=== PATIENT | male | born 1950 | race Caucasian/White ===

== ENCOUNTER → 2017-11-01 | Outpatient (CLI) | payer OTHER ==
[~2017-11-01] MED LIST: SIMV40TA2 PO
[2017-11-01 11:28] LABS: ALBUMIN 3.6 gm/dl (3.4-5.0); AST/SGOT 19 U/L (15-37); BLOOD UREA NITROGEN 14 mg/dl (7-18); CALCIUM 8.9 mg/dl (8.5-10.1); CARBON DIOXIDE 27 mmol/L (21-32); CREATININE 1.04 mg/dl (0.60-1.40); GLUCOSE 121 mg/dl (70-99); POTASSIUM 4.2 mmol/L (3.5-5.1); SODIUM 137 mmol/L (136-145)
[2017-11-01 11:32] LABS: ALKALINE PHOSPHATASE 70 U/L (45-117); ALT/SGPT 34 U/L (12-78); CHOLESTEROL 192 mg/dl (0-200); LDL CHOLESTEROL CALCULATED 125 mg/dl; TOTAL PROTEIN 7.7 gm/dl (6.4-8.2)
== END | disposition home or self-care (01) ==
LOC: C.LABBC 08:50
PROVIDERS: ATTEND Nurse Practitioner Adult Health
DX: E78.5 Hyperlipidemia, unspecified (principal); I10 Essential (primary) hypertension

== ENCOUNTER → 2017-11-18 | Outpatient (CLI) | payer OTHER ==
[2017-11-18 11:38] LABS: HEMOGLOBIN A1C 6.2 % (4.5-5.6)
[2017-11-18 11:41] LABS: BLOOD UREA NITROGEN 18 mg/dl (7-18); CALCIUM 9.4 mg/dl (8.5-10.1); CARBON DIOXIDE 27 mmol/L (21-32); CREATININE 1.12 mg/dl (0.60-1.40); GLUCOSE 116 mg/dl (70-99); POTASSIUM 4.4 mmol/L (3.5-5.1); SODIUM 137 mmol/L (136-145)
== END | disposition home or self-care (01) ==
LOC: C.LABBC 08:26
PROVIDERS: ATTEND Nurse Practitioner Adult Health
DX: E78.5 Hyperlipidemia, unspecified (principal); I10 Essential (primary) hypertension; R73.03 Prediabetes

== ENCOUNTER → 2017-11-29 | Outpatient (CLI) | payer OTHER ==
--- NOTE | 2017-11-29 16:06 | DIAGNOSTIC IMAGING REPORT ---
R VENOUS DOPP LOWER EXT UNILAT HISTORY: 67 years-old Male M79.604 Pain of right lower extremityright lower [id number] acute pain and swelling of the right lower extremity COMPARISON: None available TECHNIQUE: Multiple real-time sonographic images of the right lower extremity deep venous structures were obtained assessing grayscale appearance, color and spectral flow. FINDINGS: There is normal flow, phasicity, compressibility and augmentation of the right lower extremity deep venous structures. IMPRESSION: No sonographic evidence of deep venous thrombosis. The above report was generated using voice recognition software. It may contain grammatical, syntax or spelling errors. Electronically signed by: Alexis Santizo M.D. 11/29/2017 4:05 PM Dictated Date/Time: 11/29/2017 4:04 PM
== END | disposition home or self-care (01) ==
LOC: C.ULTR 15:30
PROVIDERS: ATTEND Nurse Practitioner Adult Health
DX: M79.604 Pain in right leg (principal)

== ENCOUNTER 2020-03-04 13:40 | Observation (INO) ==
[2020-03-04] MEDS ORDERED: SODIUM CHLORIDE 0.9% 1000ML 1,000 ML IV SCH (14:15)
[2020-03-04] MEDS ORDERED: OPTIRAY 320 125ml IV PRN (14:19)
[2020-03-04 14:26] LABS: Basophils # (auto) 0.05 K/uL (0-0.2); Basophils % (auto) 0.4 %; Eosinophils # (auto) 0.38 K/uL (0-0.5); Eosinophils % (auto) 3.4 %; Hemoglobin 14.8 g/dL (14.0-18.0); Immature Granulocytes # (auto) 0.02 K/uL (0.00-0.02); Immature Granulocytes % (auto) 0.2 %; Lymphocytes # (auto) 2.75 K/uL (1.2-3.4); Lymphocytes % (auto) 24.6 %; Mean Corpuscular Hemoglobin 30.3 pg (25-34); Mean Corpuscular Hgb Conc 33.6 g/dL (32-36); Mean Corpuscular Volume 90.2 fL (80-100); Monocytes # (auto) 0.83 K/uL (0.11-0.59); Monocytes % (auto) 7.4 %; Neutrophils # (auto) 7.16 K/uL (1.4-6.5); Platelet Count 247 K/uL (130-400); RDW Standard Deviation 42.5 fL (36.4-46.3); Red Blood Count 4.88 M/uL (4.7-6.1); White Blood Count 11.19 K/uL (4.8-10.8)
--- NOTE | 2020-03-04 14:28 | Emergency Department Note ---
Impression & Plan Numbness on right side, Hypertension, Stroke-like symptoms ED Provider Note NAME: JOSE LUIS DOMINGUEZ AGE: 70 SEX: M : 1950 ARRIVES VIA: Walk-In INFORMANT: [Patient] ED PROVIDER(S): [Lowell Costello MD] CHIEF COMPLAINT: Right-sided numbness HISTORY OF PRESENT ILLNESS: The patient is a 70-year-old male who presents to the ED with complaints of right-sided numbness for the last hour. The patient states that yesterday, he had a dizzy spell for a few minutes that resolved. Today, about 5 hours ago, his left arm felt numb for a few minutes and then resolved. Patient states that 1 hour ago, he developed numbness to his right face, right arm and right leg and his right side felt weak. The patient states he did not think he could walk. He states that now, he has only residual numbness in his right arm, most of his symptoms have resolved. Patient denies any difficulty with his speech or facial drooping during the severe numbness episode. Patient has not had cough, cold or congestion. He has been in baseline health. He takes baby aspirin regularly. He has never had a stroke. The patient did go to his doctor's office and was referred to the ED. REVIEW OF SYSTEMS: See HPI for pertinent positives and negatives. A total of ten systems were reviewed and were otherwise negative. PMHx/PSHx: See Below SOCIAL HISTORY: See Below. PHYSICAL EXAM: GENERAL: Patient is in no acute distress. HEENT: No acute trauma, normocephalic atraumatic, mucous membranes moist, no nasal congestion, no scleral icterus. NECK: No stridor, no adenopathy, no meningismus, trachea is midline. LUNGS: Clear to auscultation bilaterally, no wheeze, no rhonchi, breath sounds equal. HEART: Without murmurs gallops or rubs, regular rate and rhythm. ABDOMEN: Soft, nontender, bowel sounds positive, no hernias, no peritonitis. EXTREMITIES: No cyanosis or edema, full range of motion of all the joints without pain or difficulty, no signs for acute trauma. NEUROLOGIC: Oriented x 3, no acute motor or sensory deficits, no focal weakness. No speech slur or facial droop, there is some subtle decrease in sensation in the right arm when compared to the left. There is no cerebellar dysfunction or pronator drift. SKIN: No rash, no jaundice, no diaphoresis. DIFFERENTIAL DIAGNOSIS: Infection, dehydration, metabolic abnormality, hypo/hyperglycemia, CVA, TIA, hypertensive emergency, electrolyte disturbance, anemia, hypoxia, cardiac sources, intracerebral event, toxicologic, neurologic, as well as other pathologies. EMERGENCY DEPARTMENT COURSE/PROCEDURES: ECG: Indication was weakness and possible stroke. The EKG shows a normal sinus rhythm with a rate of 82. There is no ST elevation, no PVCs. The QTc is 457. Continuous Cardiac Monitoring: An order was placed for continuous cardiac monitoring. The monitor shows a rate of 78 with normal sinus rhythm. Critical Care Note: I have personally spent greater than 33 minutes of critical care time in the direct management of this patient. This includes bedside care, interpretation of diagnostic studies, and testing, discussion with consultants, patient, and family members, and other required patient management activities. This 33 minutes is in excess of all separately billable procedures. MEDICAL DECISION MAKING: There is a mild leukocytosis, this could be consistent with infection or the stress of his situation. There is no anemia. No coagulopathy. No significant electrolyte abnormality or kidney failure. No liver enzyme elevation. Urinalysis does not show infection. EKG shows a sinus rhythm, no dysrhythmia, no acute ischemia. Cardiac enzyme testing x1 is not consistent with acute cardiac injury. Brain CT angiogram does not show any bleed or mass-effect. CT Angio of the neck does show some stenosis, no acute clot. On my exam, the patient may have had some slight decrease in his sensation on the right arm. There were no focal motor deficits. No speech slur. Given the patient's presentation, a stroke alert was called. The patient was seen by the tele-stroke neurologist. The patient received IV saline for hydration. He was given a dose of oral Plavix as recommended by the stroke neurologist. The patient was initially quite hypertensive and I did order for some IV hydralazine however, this medication was not required as his pressure decreased spontaneously. The patient presents with symptoms concerning for TIA/stroke. He has improved significantly on his own and at this point, because of the marked improvement, as per the stroke neurologist, is not a candidate for TPA. I spoke to the patient about his findings, I spoke with the case hardener. Hospitalization and further work-up is warranted. The on-call hospitalist was consulted. Patient is currently resting comfortably. Past Med/Surg History Medical History Sensorineural hearing loss (Inactive) Tinnitus (Inactive) Surgical History History of appendectomy History of surgery on wrist fracture repair History of vasectomy Family History Mother Cancer Breast cancer Denies family history of Ovarian cancer Prostate cancer Diabetes Myocardial infarction Hypertension Stroke Social History Preferred Language: Bengali Communication Ability: Effective Visual Impairment: No Limitations Hearing Ability: Normal Historical Interpreter Required: No Beliefs That Will Affect Care: None marital status: single Current Living Situation: Other Current Living Situation Comment: girlfriend current occupational status: employed Other Information That Helps Us Care for You: No Feels Safe at Home: Yes Safety Concerns: Feels Safe At This Time Smoking Status: Never smoker Hx Alcohol Use: Yes Alcohol type: beer Alcohol Intake Frequency: Rarely Hx Substance Use: No Childhood Exposure to Second-Hand Smoke: No caffeine: Yes Dental Care, Regularly: Yes Physical Activity Frequency: Does not Exercise Seatbelt Use: always Sunscreen Use: No Allergies Allergies Allergy/AdvReac Type Severity Reaction Status Date / Time codeine Allergy Mild Verified 03/04/20 15:24 Home Meds Home Medications Medication Instructions Recorded Confirmed aspirin 81 mg chewable tablet 81 mg PO QAM tab 11/14/19 03/04/20 cholecalciferol (vitamin D3) 50 2,000 units PO QAM cap 11/14/19 03/04/20 mcg (2,000 unit) capsule mometasone 50 mcg/actuation nasal 1 sprays INTNAS QAM PRN gm 11/14/19 03/04/20 spray omega-3 fatty acids 1,000 mg 1,000 mg PO QAM 11/14/19 03/04/20 capsule lisinopril 20 mg PO QAM 03/04/20 03/04/20 simvastatin 40 mg PO QAM 03/04/20 03/04/20 Previous Rx's Medication Instructions Recorded sildenafil (pulm.hypertension) 20 20 mg PO ONCE PRN #120 tab 05/19/20 mg tablet Results & Data (ED) Vital Signs Vital Signs - 24 hr 03/04/20 13:46 03/04/20 14:32 03/04/20 14:34 Temperature 36.9 C Temperature Source Oral Pulse Rate 88 88 82 Pulse Rate [Apical] Pulse Rate from SpO2 Sensor 80 Pulse Rhythm Regular Pulse Strength Normal Respiratory Rate 18 20 19 Respiratory Effort / Characteristics Non-Labored Spontaneous Respiratory Depth Normal Respiratory Pattern Regular Blood Pressure 188/75 H 179/85 H 194/95 H Blood Pressure [Right Arm] Blood Pressure Mean 112 104 133 Blood Pressure Mean [Right Arm] Blood Pressure Position Sitting Pulse Oximetry 95 95 Oxygen Delivery Method Room Air Sepsis Recent Fever Within 48 Hours No Sepsis New/Unexplained Change in Mental Status No Sepsis Action Taken by Nursing No Action Required 03/04/20 14:36 03/04/20 15:00 03/04/20 15:26 Temperature Temperature Source Pulse Rate 82 Pulse Rate [Apical] 74 76 Pulse Rate from SpO2 Sensor 81 Pulse Rhythm Pulse Strength Respiratory Rate 19 18 18 Respiratory Effort / Characteristics Respiratory Depth Respiratory Pattern Blood Pressure Blood Pressure [Right Arm] 145/68 H 159/82 H Blood Pressure Mean Blood Pressure Mean [Right Arm] 93 107 Blood Pressure Position Pulse Oximetry 95 95 97 Oxygen Delivery Method Room Air Room Air Sepsis Recent Fever Within 48 Hours Sepsis New/Unexplained Change in Mental Status Sepsis Action Taken by Halfway Medications Current Medication List: was personally reviewed by me Laboratory Data Attestation: I reviewed the patient's lab results. Result diagrams: 03/04/20 14:16 03/04/20 14:16 Lab Results 03/04/20 03/04/20 03/04/20 Range/Units 14:13 14:16 14:16 WBC 11.19 H (4.8-10.8) K/uL RBC 4.88 (4.7-6.1) M/uL Hgb 14.8 (14.0-18.0) g/dL Hct 44.0 (42-52) % MCV 90.2 (80-100) fL MCH 30.3 (25-34) pg MCHC 33.6 (32-36) g/dL RDW Std Deviation 42.5 (36.4-46.3) fL RDW Coeff of Nikolai 13.0 (11.5-14.5) % Plt Count 247 (130-400) K/uL MPV 10.0 (7.4-10.4) fL Immature Gran % (Auto) 0.2 % Neut % (Auto) 64.0 % Lymph % (Auto) 24.6 % [place] % (Auto) 7.4 % Eos % (Auto) 3.4 % Baso % (Auto) 0.4 % Immature Gran # (Auto) 0.02 (0.00-0.02) K/uL Neut # (Auto) 7.16 H (1.4-6.5) K/uL Lymph # (Auto) 2.75 (1.2-3.4) K/uL [place] # (Auto) 0.83 H (0.11-0.59) K/uL Eos # (Auto) 0.38 (0-0.5) K/uL Baso # (Auto) 0.05 (0-0.2) K/uL PT 10.7 (9.0-12.0) Seconds INR 1.0 (0.9-1.1) APTT 25.9 (21.0-31.0) Seconds PTT Ratio 0.9 Sodium (136-145) mmol/L Potassium (3.5-5.1) mmol/L Chloride (98-107) mmol/L Carbon Dioxide (21-32) mmol/L Anion Gap (3-11) BUN (7-18) mg/dl Creatinine (0.6-1.4) mg/dl Est Cr Clr Drug Dosing ml/min Est GFR ( Amer) Est GFR (Non-Af Amer) BUN/Creatinine Ratio (10-20) Glucose (70-99) mg/dl POC Glucose 118 H (70-99) mg/dl Calcium (8.5-10.1) mg/dl Magnesium (1.8-2.4) mg/dl Total Bilirubin (0.2-1) mg/dl AST (15-37) U/L ALT (12-78) U/L Alkaline Phosphatase (45-117) U/L Troponin I (0-0.045) ng/ml Total Protein (6.4-8.2) gm/dl Albumin (3.4-5.0) gm/dl Globulin (2.5-4.0) gm/dl Albumin/Globulin Ratio (0.9-2) 06/15/20 Range/Units 14:16 WBC (4.8-10.8) K/uL RBC (4.7-6.1) M/uL Hgb (14.0-18.0) g/dL Hct (42-52) % MCV (80-100) fL MCH (25-34) pg MCHC (32-36) g/dL RDW Std Deviation (36.4-46.3) fL RDW Coeff of Nikolai (11.5-14.5) % Plt Count (130-400) K/uL MPV (7.4-10.4) fL Immature Gran % (Auto) % Neut % (Auto) % Lymph % (Auto) % [place] % (Auto) % Eos % (Auto) % Baso % (Auto) % Immature Gran # (Auto) (0.00-0.02) K/uL Neut # (Auto) (1.4-6.5) K/uL Lymph # (Auto) (1.2-3.4) K/uL [place] # (Auto) (0.11-0.59) K/uL Eos # (Auto) (0-0.5) K/uL Baso # (Auto) (0-0.2) K/uL PT (9.0-12.0) Seconds INR (0.9-1.1) APTT (21.0-31.0) Seconds PTT Ratio Sodium 140 (136-145) mmol/L Potassium 3.8 (3.5-5.1) mmol/L Chloride 105 (98-107) mmol/L Carbon Dioxide 26 (21-32) mmol/L Anion Gap 9.0 (3-11) BUN 24 H (7-18) mg/dl Creatinine 1.16 (0.6-1.4) mg/dl Est Cr Clr Drug Dosing 84.3 ml/min Est GFR ( Amer) 74.6 Est GFR (Non-Af Amer) 64.3 BUN/Creatinine Ratio 20.3 H (10-20) Glucose 121 H (70-99) mg/dl POC Glucose (70-99) mg/dl Calcium 9.2 (8.5-10.1) mg/dl Magnesium 1.9 (1.8-2.4) mg/dl Total Bilirubin 0.5 (0.2-1) mg/dl AST 30 (15-37) U/L ALT 57 (12-78) U/L Alkaline Phosphatase 72 (45-117) U/L Troponin I < 0.015 (0-0.045) ng/ml Total Protein 7.8 (6.4-8.2) gm/dl Albumin 3.6 (3.4-5.0) gm/dl Globulin 4.2 H (2.5-4.0) gm/dl Albumin/Globulin Ratio 0.9 (0.9-2) Administered Medications Discontinued Medications Clopidogrel Bisulfate (Plavix) 300 mg PO NOW STA Stop: 03/04/20 15:00 Last Admin: 03/04/20 15:34 Dose: 300 mg Documented by: [id number] Hydralazine HCl (Hydralazine Hcl) 5 mg IV NOW ONE Stop: 03/04/20 14:54 Last Admin: 03/04/20 16:41 Dose: Not Given Documented by: [id number] Sodium Chloride (Nss 1000ml) 1,000 mls @ 50 mls/hr IV .Q20H NICKIE Stop: 04/03/20 14:14 Last Admin: 03/04/20 15:15 Dose: 50 mls/hr Documented by: [id number] Ioversol (Optiray 320 125ml) 115 ml IV ONCE PRN PRN Reason: Interaction Checking Stop: 03/08/20 14:18 Last Admin: 03/04/20 14:20 Dose: 115 ml Documented by: [id number] Imaging Data Radiologist's Impression: CT OF THE HEAD WITHOUT CONTRAST CLINICAL HISTORY: Stroke evaluation. Right-sided numbness. COMPARISON STUDY: MRI of the brain July 05, 2014. CT DOSE: 1239.69 mGy.cm TECHNIQUE: Helical axial images of the head were obtained without IV contrast. Automated exposure control was utilized for the study. A dose lowering technique was utilized adhering to the principles of ALARA. FINDINGS: No acute intracranial hemorrhage, midline shift or mass effect is present. The ventricular system is unremarkable. The basilar cisterns are patent. No extra-axial collections are present. There are no findings to suggest acute dural sinus thrombosis or acute territorial infarct. No significant calvarial abnormalities are present. Note is made of air-fluid levels within the sphenoid sinuses. There is also extensive opacification of the right frontal and ethmoid sinuses. Polypoid mucosal thickening within visualized portions of the maxillary sinuses noted. This may reflect sinonasal polyposis. IMPRESSION: 1. No acute intracranial findings. 2. Paranasal sinus opacification, as described above. CT angio head w con CLINICAL HISTORY: Stroke evaluation RIGHT-SIDED NUMBNESS TECHNIQUE: CT angiography of the head was performed in a dynamic helical fashion during intravenous administration of 115 cc of Optiray 320. MIP imaging was performed. A dose lowering technique was utilized adhering to the principles of ALARA. CT DOSE: COMPARISON STUDY: MR angiography performed September 2013 FINDINGS: There are no lesion suspicious for aneurysm. There are atheromatous calcifications within the carotid siphon. There are no major intracranial branch occlusions. There is no evidence of major intracranial stenosis. There is pa nsinus disease. The dural venous sinuses appear patent. IMPRESSION: 1. No evidence of aneurysm, major intracranial branch occlusion, or major intracranial stenosis 2. Pansinus disease CT angio neck with con CLINICAL HISTORY: Stroke evaluation RIGHT-SIDED NUMBNESS COMPARISON STUDY: No previous studies for comparison. TECHNIQUE: CT angiography was performed from the aortic arch to the skull base. MIP imaging was performed. The patient was scanned in a dynamic helical fashion during intravenous administration of 115 cc of Optiray 320. A dose lowering technique was utilized adhering to the principles of ALARA. CT DOSE: Technique: CT angiogram of the carotid and vertebral arteries was obtained using intravenous contrast and 3-D reconstruction. NASCET criteria was utilized. Findings: There is moderate atheromatous thickening of the distal right common carotid artery. There is calcific plaque at the level the right carotid bulb and pr oximal right internal carotid artery. There is a 50% stenosis of the proximal right internal carotid artery. There is mild atheromatous thickening of distal left common carotid artery. There is no evidence of hemodynamically significant left internal carotid artery stenosis There are mild atheromatous calcifications within the distal right vertebral artery. There is no evidence of vertebral artery occlusion dissection or hemodynamically significant stenosis. IMPRESSION: 50% stenosis of the proximal right internal carotid artery. Blood Pressure Blood Pressure Findings: Elevated blood pressure Blood Pressure Disposition: further management by hospitalist Discharge Plan Visit Data *Final* Discharge Date/Time: 03/04/20 18:00 Chief Complaint: Neuro Symptoms/Deficit Stated Complaint: LIGHTHEADED YESTERDAY, RT SIDE NUMB THIS MORNING ED Provider: Lowell Costello Discharge Problem: Numbness on right side, Hypertension, Stroke-like symptoms Patient Disposition: Admitted As Inpatient Condition: Good Discharge Instructions Interventions: ED Discharge Assessment Last Done: 03/04/20 18:00 Discharge Problem: Hypertension Qualifiers: Hypertension type: unspecified Qualified Code(s): I10 - Essential (primary) hypertension
--- NOTE | 2020-03-04 14:34 | CT Scan Report ---
CT OF THE HEAD WITHOUT CONTRAST CLINICAL HISTORY: Stroke evaluation. Right-sided numbness. COMPARISON STUDY: MRI of the brain July 05, 2014. CT DOSE: 1239.69 mGy.cm TECHNIQUE: Helical axial images of the head were obtained without IV contrast. Automated exposure con trol was utilized for the study. A dose lowering technique was utilized adhering to the principles o f ALARA. FINDINGS: No acute intracranial hemorrhage, midline shift or mass effect is present. The ventricular system is unremarkable. The basilar cisterns are patent. No extra-axial collections are present. Ther e are no findings to suggest acute dural sinus thrombosis or acute territorial infarct. No significan t calvarial abnormalities are present. Note is made of air-fluid levels within the sphenoid sinuses. There is also extensive opacification of the right frontal and ethmoid sinuses. Polypoid mucosal thic kening within visualized portions of the maxillary sinuses noted. This may reflect sinonasal polyposi s. IMPRESSION: 1. No acute intracranial findings. 2. Paranasal sinus opacification, as described above. ACT 112: Negative or not required by law. Electronically signed by: John Mehta M.D. 03/04/2020 2:33 PM
[2020-03-04 14:37] LABS: Partial Thromboplastin Ratio 0.9; Partial Thromboplastin Time 25.9 Seconds (21.0-31.0); Prothrombin Time 10.7 Seconds (9.0-12.0)
--- NOTE | 2020-03-04 14:38 | CT Scan Report ---
CT angio head w con CLINICAL HISTORY: Stroke evaluation RIGHT-SIDED NUMBNESS TECHNIQUE: CT angiography of the head was performed in a dynamic helical fashion during intravenous a dministration of 115 cc of Optiray 320. MIP imaging was performed. A dose lowering technique was util ized adhering to the principles of ALARA. CT DOSE: COMPARISON STUDY: MR angiography performed September 2013 FINDINGS: There are no lesion suspicious for aneurysm. There are atheromatous calcifications within t he carotid siphon. There are no major intracranial branch occlusions. There is no evidence of major i ntracranial stenosis. There is pansinus disease. The dural venous sinuses appear patent. IMPRESSION: 1. No evidence of aneurysm, major intracranial branch occlusion, or major intracranial stenosis 2. Pansinus disease ACT 112: Negative or not required by law. Electronically signed by: Ernst Jean M.D. 03/04/2020 2:37 PM
[2020-03-04 14:42] LABS: Alanine Aminotransferase 57 U/L (12-78); Albumin Level 3.6 gm/dl (3.4-5.0); Aspartate Aminotransferase 30 U/L (15-37); BUN Creatinine Ratio 20.3 (10-20); Blood Urea Nitrogen 24 mg/dl (7-18); Calcium 9.2 mg/dl (8.5-10.1); Carbon Dioxide 26 mmol/L (21-32); Chloride 105 mmol/L (98-107); Creatinine Clr Calc Pharmacy 84.3 ml/min; Est GFR (African American) 74.6; Est GFR (Non-African American) 64.3; Glucose 121 mg/dl (70-99); Magnesium 1.9 mg/dl (1.8-2.4); Potassium 3.8 mmol/L (3.5-5.1); Sodium 140 mmol/L (136-145)
--- NOTE | 2020-03-04 14:44 | CT Scan Report ---
CT angio neck with con CLINICAL HISTORY: Stroke evaluation RIGHT-SIDED NUMBNESS COMPARISON STUDY: No previous studies for comparison. TECHNIQUE: CT angiography was performed from the aortic arch to the skull base. MIP imaging was perfo rmed. The patient was scanned in a dynamic helical fashion during intravenous administration of 115 c c of Optiray 320. A dose lowering technique was utilized adhering to the principles of ALARA. CT DOSE: Technique: CT angiogram of the carotid and vertebral arteries was obtained using intravenous contrast and 3-D reconstruction. NASCET criteria was utilized. Findings: There is moderate atheromatous thickening of the distal right common carotid artery. There is calcifi c plaque at the level the right carotid bulb and proximal right internal carotid artery. There is a 5 0% stenosis of the proximal right internal carotid artery. There is mild atheromatous thickening of distal left common carotid artery. There is no evidence of h emodynamically significant left internal carotid artery stenosis There are mild atheromatous calcifications within the distal right vertebral artery. There is no evid ence of vertebral artery occlusion dissection or hemodynamically significant stenosis. IMPRESSION: 50% stenosis of the proximal right internal carotid artery. ACT 112: Negative or not required by law. Electronically signed by: Ernst Jean M.D. 03/04/2020 2:43 PM
[2020-03-04 14:47] LABS: Albumin Globulin Ratio 0.9 (0.9-2); Alkaline Phosphatase 72 U/L (45-117); Bilirubin,Total 0.5 mg/dl (0.2-1); Globulin 4.2 gm/dl (2.5-4.0); Total Protein 7.8 gm/dl (6.4-8.2); Troponin I < 0.015 ng/ml (0-0.045)
[2020-03-04] MEDS ORDERED: HydrALAZINE HCL 20 MG/ML VIAL IV ONE (14:53)
[2020-03-04] MEDS ORDERED: CLOPIDOGREL BISULFATE 300 MG TAB PO STA (14:59)
--- NOTE | 2020-03-04 15:31 | Electrocardiogram Report ---
Test Reason : Blood Pressure : / mmHG Vent. Rate : 082 BPM Atrial Rate : 082 BPM P-R Int : 142 ms QRS Dur : 084 ms QT Int : 392 ms P-R-T Axes : 042 040 070 degrees QTc Int : 457 ms Poor data quality, interpretation may be adversely affected Normal sinus rhythm Normal ECG When compared with ECG of 01-OCT-2008 12:15, Vent. rate has increased BY 30 BPM Nonspecific T wave abnormality now evident in Lateral leads QT has lengthened Confirmed by Cem Felipe ([id number]) on 03/04/2020 3:31:23 PM Referred By: REFERRED SELF Confirmed By:Indra Felipe
--- NOTE | 2020-03-04 15:43 | History & Physical Report ---
Date of Service March 04, 2020 Assessment & Plan (1) TIA (transient ischemic attack): This time patient's had reversal of his neurological symptoms with exception of his visual field cuts most concerning for stroke. Although imaging did not show any stroke seen on CT scan he elevated pending MRI scan. Because of his bilateral visual field cut concerns would be for a subtotal stroke. I will subsequently have the MRI continue his aspirin and Zocor at this time controlling his blood pressure and having a pending echocardiogram. If the MRI does show an event or symptoms persist neurology consultation will be undertaken on 03/05/2020 On 03/05 patient will have a Lyme, hemoglobin A1c, and lipid panel CT head 03/04/2020 no acute intracranial findings para sinus opacification CT angiogram head and neck 03/04/2020 No evidence of aneurysm major intracranial branch occlusion or major intracranial stenosis. 50% stenosis of the proximal right internal carotid artery is the only abnormality seen on CTA of the neck (2) Hypertension: Patient traditionally takes lisinopril 20 this will be maintained with offering of clonidine if need be (3) BPH (benign prostatic hyperplasia): Patient is frequent urination does not usually take medications for this did not want to start any medications at this time states he follows with his doctor for this problem (4) DVT prophylaxis: Lovenox will be used for DVT prevention History of Present Illness Primary Care Provider: Alton Hu, DO 70-year-old male who presents to the ED with complaints of right-sided numbness for the last hour. Patient states that he felt unusual this morning before work and then he developed some facial numbness and then had complete right-sided numbness. His most concerning issue now that all the numbness is resolved as he is got a right sided upper visual field cut in both eyes. The patient states that yesterday, he had a dizzy spell for a few minutes that resolved. This is also associated with some left arm discomfort but no chest pain pressure shortness of breath or feelings of palpitations. Today, 03/04/2020 approximately 5 hours prior to presenting, his symptoms began on his way to work. They got worse and he called his primary care office which referred to the hospital. He drove himself home. He did not look in the mirror to see if he had any facial drooping. When he got to the emergency department his side was so numb that he felt he could not walk into the emergency department. He subsequently was brought in in a wheelchair he had full resolution of his numbness at this point he is only presenting symptom currently is his visual field cut patient denies any difficulty with his speech or facial drooping during the severe numbness episode. Patient has not had cough, cold or congestion. He has been in baseline health. He has not had any recent tick bites change in his medical regiment. Over the weekend he was at a wedding did have increased alcohol intake over his baseline which only was few drinks at a wedding. He did use his Viagra over last 24 hours. He takes baby aspirin regularly. He has never had a stroke. Allergies Allergy/AdvReac Type Severity Reaction Status Date / Time codeine Allergy Mild Verified 03/04/20 15:24 Home Medications Home Medications Medication Instructions Recorded Confirmed Type aspirin 81 mg chewable tablet 81 mg PO QAM tab 11/14/19 03/04/20 History cholecalciferol (vitamin D3) 50 2,000 units PO QAM cap 11/14/19 03/04/20 History mcg (2,000 unit) capsule mometasone 50 mcg/actuation nasal 1 sprays INTNAS QAM PRN gm 11/14/19 03/04/20 History spray omega-3 fatty acids 1,000 mg 1,000 mg PO QAM 11/14/19 03/04/20 History capsule sildenafil (pulm.hypertension) 20 20 mg PO ONCE PRN #120 tab 02/06/20 03/04/20 Rx mg tablet lisinopril 20 mg PO QAM 03/04/20 03/04/20 History simvastatin 40 mg PO QAM 03/04/20 03/04/20 History Past Med/Surg History Social History Preferred Language: Thai Communication Ability: Effective Visual Impairment: No Limitations Hearing Ability: Normal 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 Beliefs That Will Affect Care: None marital status: single Current Living Situation: Other Current Living Situation Comment: girlfriend current occupational status: employed Other Information That Helps Us Care for You: No Feels Safe at Home: Yes Safety Concerns: Feels Safe At This Time Smoking Status: Never smoker Hx Alcohol Use: Yes Alcohol type: beer Alcohol Intake Frequency: Rarely Hx Substance Use: No Childhood Exposure to Second-Hand Smoke: No caffeine: Yes Dental Care, Regularly: Yes Physical Activity Frequency: Does not Exercise Seatbelt Use: always Sunscreen Use: No Review of Systems Review of Systems: Patient said no headache he does have changes in his visual field the right upper outer quadrant no speech or swallowing issues no chest pain, pressure or palpitations no shortness of breath, cough or wheezes no abdominal pain, nausea or vomiting, diarrhea or constipation no dysuria, hematuria or frequency no focal joint pain or swelling no back pain, CVA tenderness or radicular pain no bruising, bleeding or rashes no focal signs of weakness or numbness or altered sensation as they have completely resolved at this time with exception of his vision no complaints or anxiety or depression. Physical Exam Physical Exam: The patient appeared well nourished and normally developed. Vital signs as documented. Head exam is normocephalic atraumatic no scleral icterus Neck is without JVD, thyromegaly, or carotid bruits. Lungs are clear to auscultation, no focal loss of breath sounds Cardiac exam, Rhythm is regular.. No murmurs, rubs or gallops. Abdominal exam reveals normal bowel sounds, soft non tender, no masses Extremities are nonedematous and both pedal pulses are normal. Neurologic exam is alert and oriented, no focal loss of strength or sensation Skin is without bruises or rashes Psychologically is without concerns for anxiety or depression Results & Data Results & Data ([facility]) Vital Signs (Past 12 Hours) Vital Signs Temp Pulse Pulse Resp BP BP Pulse Ox 03/04/20 15:00 74 18 145/68 H 95 03/04/20 14:36 82 19 95 03/04/20 14:34 82 19 194/95 H 95 03/04/20 14:32 88 20 179/85 H 03/04/20 13:46 98.4 F 88 18 188/75 H 95 PG Care Time/CCT Total # of Minutes Spent Total Time Spent with Patient: Total time spent is greater than 50% in coordination of care (as documented) at patient's floor/unit and/or counseling patient: Coding Level of Care Code 64797 OBS Care - Level 3 Diagnoses TIA (transient ischemic attack) G45.9 Hypertension I10 BPH (benign prostatic hyperplasia) N40.0 DVT prophylaxis Z29.9
[2020-03-04 16:49] LABS: Appearance Urine Clear (Clear); Bilirubin Urine Negative (Negative); Blood Urine Negative (Negative); Color Urine Yellow; Glucose Urine UA Negative (Negative); Ketones Urine Negative (Negative); Leukocyte Esterase Urine Negative (Negative); Nitrite Urine Negative (Negative); Protein Urine Negative (Negative); Specific Gravity Urine > 1.045 (1.000-1.030); Urobilinogen Urine Negative (Negative); pH Urine 5.5 (4.5-7.5)
[2020-03-04] MEDS ORDERED: PHARMACIST DISCHARGE MED REC CONSULT PRN (18:38)
[2020-03-04] MEDS ORDERED: cloNIDine HCL 0.1 MG TAB PO PRN (18:38)
[2020-03-04] MEDS ORDERED: ALUMINUM/MAGNESIUM SUSP 30 ML UDC PO PRN (18:38)
[2020-03-04] MEDS ORDERED: ACETAMINOPHEN 325 MG TAB PO PRN (18:38)
[2020-03-04] MEDS ORDERED: LORazepam 0.5 MG TAB PO PRN (18:38)
[2020-03-04] MEDS ORDERED: ONDANSETRON INJ 2 MG/ML 2 ML VIAL IV PRN (18:38)
[2020-03-04] MEDS ORDERED: ENOXAPARIN INJ 40 MG/0.4 ML SYR SQ SCH (20:00)
--- NOTE | 2020-03-04 22:26 | Communication Note ---
Date of Service: March 04, 2020 Got notification by [facility] that MRI showed a small acute stroke in the L occipital lobe. Outside tPA window currently. Noted that pt is on stroke protocol with neuro checks, PT/OT and speech therapy ordered. Echo also ordered. Received 300mg of Plavix in the ED and has aspirin scheduled for the AM. Given one dose of aspirin 324mg tonight. Consult placed to neurology for AM. Resident Activity Tracking Resident Involvement: Psychological Aide Coverage Note Care Provided: Adult Hospital Medicine
[2020-03-04] MEDS ORDERED: ASPIRIN 81 MG CHEW PO ONE (22:49)
[2020-03-05 05:57] LABS: Estimated Average Glucose 169 mg/dl; Hemoglobin A1C 7.5 % (4.5-5.6)
--- NOTE | 2020-03-05 07:31 | Magnetic Resonance Report ---
MR brain wo con HISTORY: 70 years-old Male evaluate for stroke acute strokelike symptoms with right-sided numbness COMPARISON: Head CT and CTA head neck of same day, brain MRI 10/12/2013 TECHNIQUE: Multiplanar multisequence MRI of the brain was obtained without the use of IV contrast. FINDINGS: Motor Tester localizer images demonstrate no gross extracranial abnormality. There is a 2.3 x 1.9 cm focus o f restricted diffusion involving the inferior left occipital lobe, image 7 of series 4 with decreased signal on ADC map compatible with area of acute infarction. This demonstrates moderate focal cytotox ic edema. Midline structures including the corpus callosum, brainstem, optic chiasm, and pituitary gl and appear unremarkable the sagittal T1 series. 8 mm pineal gland cyst. No cerebellar tonsillar herni ation. Degenerative changes are noted involving the imaged cervical spine. There is no acute intracranial hemorrhage, midline shift, abnormal extra axial collection, hydrocepha mayo or intracranial mass. Mild scattered T2/FLAIR hyperintensities throughout the white matter of the bilateral cerebral hemispheres, most pronounced in the frontal lobes is suggestive of probable chron ic microvascular ischemic disease. There is a 1.2 cm focal T2/FLAIR hyperintense focus involving the periventricular white matter of the left frontal lobe on image 12 series 7 and image 17 series 5 sugg estive of a probable remote lacunar infarct. Major vascular flow voids appear patent. Mastoid air mason ls are clear. Moderate to extensive mucosal thickening of the paranasal sinuses, most pronounced in t he ethmoid air cells and right frontal lobe are noted with scattered areas of air-fluid levels compat ible with acute sinusitis. Orbits are unremarkable. The skull and soft tissues are within normal limi ts. IMPRESSION: 1. Acute infarct of the left occipital lobe, 2.3 x 1.9 cm. 2. Mild scattered T2/FLAIR hyperintensities throughout the white matter are suggestive of probable ch ronic microvascular ischemic disease. Additionally, there is a suggested remote lacunar infarct of th e periventricular left frontal lobe. 3. Paranasal sinus disease as above with findings suggestive of acute sinusitis. ACT 112: Negative or not required by law. The above report was generated using voice recognition software. It may contain grammatical, syntax o r spelling errors. Electronically signed by: Alexis Santizo M.D. 03/05/2020 7:29 AM
[2020-03-05 08:07] LABS: Basophils # (auto) 0.02 K/uL (0-0.2); Basophils % (auto) 0.2 %; Eosinophils # (auto) 0.36 K/uL (0-0.5); Hematocrit (blood only) 43.9 % (42-52); Hemoglobin 14.8 g/dL (14.0-18.0); Immature Granulocytes # (auto) 0.02 K/uL (0.00-0.02); Immature Granulocytes % (auto) 0.2 %; Lymphocytes # (auto) 2.57 K/uL (1.2-3.4); Lymphocytes % (auto) 28.8 %; Mean Corpuscular Hemoglobin 30.1 pg (25-34); Mean Corpuscular Hgb Conc 33.7 g/dL (32-36); Mean Corpuscular Volume 89.4 fL (80-100); Mean Platelet Volume 10.2 fL (7.4-10.4); Monocytes # (auto) 0.81 K/uL (0.11-0.59); Monocytes % (auto) 9.1 %; Neutrophils # (auto) 5.15 K/uL (1.4-6.5); Neutrophils % (auto) 57.7 %; Platelet Count 251 K/uL (130-400); RDW Coefficient of Variation 12.8 % (11.5-14.5); RDW Standard Deviation 41.8 fL (36.4-46.3); Red Blood Count 4.91 M/uL (4.7-6.1); White Blood Count 8.93 K/uL (4.8-10.8)
[2020-03-05 08:48] LABS: BUN Creatinine Ratio 16.7 (10-20); Calcium 9.2 mg/dl (8.5-10.1); Creatinine Clr Calc Pharmacy 85.1 ml/min; Est GFR (African American) 76.2; Est GFR (Non-African American) 65.7
[2020-03-05] MEDS ORDERED: SIMVASTATIN 40 MG TAB PO SCH (09:00)
[2020-03-05] MEDS ORDERED: ASPIRIN 325 MG ECTAB PO SCH (09:00)
[2020-03-05] MEDS ORDERED: lisinopriL 20 MG TAB PO SCH (09:00)
[2020-03-05] MEDS ORDERED: ASPIRIN 81 MG ECTAB PO SCH (09:00)
[2020-03-05 09:02] LABS: Lyme Ab IgG w/WB Rflx Negative (Negative)
[2020-03-05 09:03] LABS: Lyme Ab IgM w/WB Rflx Negative (Negative)
--- NOTE | 2020-03-05 09:06 | Neurology Consultation ---
Date of Consultation March 05, 2020 Assessment & Plan (1) Acute CVA (cerebrovascular accident): (2) Right homonymous hemianopsia due to recent cerebral infarction: (3) Numbness on right side: (4) Hypertension: (5) Dyslipidemia: Patient has an acute, small left occipital CVA , likely thrombotic/small vessel ischemic disease. He has some spotty decrease areas of vision to the right suggesting a partial right homonymous hemianopsia. He did have some weakness and numbness in the right arm and leg yesterday but this resolved. He has no other neurologic deficits on examination. The MRI of the brain does show the small, acute left occipital stroke, moderate generalized atrophy and mild old small vessel ischemic change. In addition there is a deep left frontal periventricular (intrathecal) circumscribed lesion which could be old ischemic but other etiologies need to be considered. Patient has risk factors for stroke including hypertension and diabetes. He was on aspirin but stopped this 2 months or so ago. Recommendations: 1. Control blood pressure as you are doing a meeting for a mean arterial pressure of 95-100. 2. Patient is a high dose statin candidate 3. Clopidogrel 75 milligrams daily to prevent further small vessel ischemic disease. This could be given instead of aspirin. 4. Consider MRI of the brain with without contrast in 2-3 months for follow-up of the left frontal circumscribed lesion. 5. Patient should visit an gas welding equipment mechanic after discharge particularly to map out visual red. 6. Increase activity as able and the patient would benefit from an exercise program. 7. Echocardiogram is pending. 8. No driving until cleared by Ophthalmology. Overall I spent a total of 100 minutes with this case, including review of records, review of MRI films, direct evaluation the patient bedside, and discussion of the case with the patient at bedside, RN at bedside, films with Dr. Santizo, and the entire case with Dr. Nolen, including differential diagnosis and treatment options. History of Present Illness Reason for Consultation: The patient is a 70-year-old, who I was asked to see at the request of Dr. Nolen, for neurologic consultation regarding right-sided symptoms and visual loss. Requesting Physician: Dr. Nolen. Attending Physician: Carlos Nolen MD History of Present Illness Patient has had a several year history of hypertension and dyslipidemia. He is on simvastatin 40 and lisinopril 20 daily. He had been on baby aspirin tablet for years but over the last couple of months he ran out and did not refill it (so he has not been on aspirin for at least 2 months). He was doing well and on March 03 in the afternoon he had an episode of lightheadedness (no vertigo) lasting about 20 minutes. In the evening he felt better. He noted no weakness, numbness, or vision problems at that time. He woke up at 0500 (as usual) on March 04, noting that his vision was not quite right off to the right. He would have blank spots when he looked certain ways to the right. There were no headaches and no eye pain. There was no double vision. 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 Because he did not feel quite right and the vision was not normal to the right, he went to his family doctor's office. They sent him to go directly to the emergency room. Around 130 in the afternoon, while driving to the ER, he noted the sudden onset of numbness and tingling in his right arm and leg greater than face. There was no pain or headache but he noted that his right arm and leg was weak. He did not think he had a facial droop and had no speech or memory problems. His vision was about the same although he felt the blank areas to the right or perhaps a little bit worse. He could not walk into the emergency room because of weakness in the right leg. He arrived to the emergency room March 04 at 1346 with a temperature 36.9, pulse 80s and regular, respiratory rate 18, blood pressure 188/75, and O2 saturation 95 percent. By the time the ER physician recorded his neurologic exam he did not have actual weakness on the right arm and leg and his sensory deficits improved to some numbness in right upper extremity. CBC was unremarkable except for white count of 11. Chem profile was unremarkable except for a glucose of 121. UA was unremarkable. CT scan of the head showed no acute changes but there was some paranasal sinusitis. CT angiography of the head and neck was unremarkable except for some 50 percent narrowing in the proximal right internal carotid artery. MRI of the brain revealed a small left occipital stroke of an acute nature. There was moderate generalized atrophy and mild old ischemic changes. In addition there was a very round 1 centimeter old lesion deep periventricular early in the left frontal lobe. This was consistent with either a lacune or something else. There was some active sinusitis seen. 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 I reviewed these films with Dr. Santizo. Patient was given 300 milligrams loading dose of Plavix. By the time 3 or 4 hours had gone by in the emergency room he had no residual weakness or numbness in the right arm or leg. His vision is stable eyes and this morning is about the same. He has no limb symptoms. CBC was unremarkable. Chem profile was unremarkable except for glucose of 159. Triglycerides were 182 and total cholesterol 206. Blood pressure was 134/72 this morning and the later was 1-80 4/84. Allergies Allergy/AdvReac Type Severity Reaction Status Date / Time codeine Allergy Mild Verified 03/04/20 15:24 Home Medications Home Medications Medication Instructions Recorded Confirmed Type aspirin 81 mg chewable tablet 81 mg PO QAM tab 11/14/19 03/04/20 History cholecalciferol (vitamin D3) 50 2,000 units PO QAM cap 11/14/19 03/04/20 History mcg (2,000 unit) capsule mometasone 50 mcg/actuation nasal 1 sprays INTNAS QAM PRN gm 11/14/19 03/04/20 History spray omega-3 fatty acids 1,000 mg 1,000 mg PO QAM 11/14/19 03/04/20 History capsule sildenafil (pulm.hypertension) 20 20 mg PO ONCE PRN #120 tab 02/06/20 03/04/20 Rx mg tablet lisinopril 20 mg PO QAM 03/04/20 03/04/20 History simvastatin 40 mg PO QAM 03/04/20 03/04/20 History Patient History Surgical History History of appendectomy History of surgery on wrist fracture repair History of vasectomy Family History Mother Cancer Breast cancer Father No problems noted. 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 Other Information That Helps Us Care for You: No Feels Safe at Home: Yes Safety Concerns: Feels Safe At This Time Smoking Status: Former smoker Age Started Using Tobacco: 20 ; Age Quit Using Tobacco: 23 ; Years Smoked: 3 ; Number of Years Since Quit: 47 ; Hx Alcohol Use: Yes Alcohol type: beer Alcohol Intake Frequency: Rarely Alcohol Intake Frequency Comment: 1-2 drinks on average per month Hx Substance Use: No Childhood Exposure to Second-Hand Smoke: No caffeine: Yes Dental Care, Regularly: Yes Physical Activity Frequency: Does not Exercise Seatbelt Use: always Sunscreen Use: No Review of Systems Constitutional: no fever, no fatigue and no weakness Eyes: + worsening vision (Blanks spots in vision to the right); no diplopia and no eye pain Ear, Nose, Mouth, Throat: + tinnitus and + hearing loss; no ear pain, no dizziness, no hoarseness and no dysphagia Respiratory: no cough and no dyspnea Cardiovascular: no chest pain, no palpitations and no lightheadedness Gastrointestinal: no abdominal pain, no nausea and no vomiting Genitourinary: no dysuria and no urinary incontinence Musculoskeletal: no back pain, no neck pain, no radicular pain, no joint pain and no myalgia Integumentary: no rash and no lesions Neurologic: no gait abnormality, no localized weakness, no generalized weakness, no tingling, no numbness, no tremor(s), no abnormal movements, no headache(s), no abnormal speech, no confusion and no memory loss Psychiatric: + anxiety; no depression, no irritability, no difficulty concentrating, no confusion and no hallucinations Endocrine: no fatigue and no flushing Hematologic / Lymphatic: no easy bleeding and no easy bruising Allergy / Immunological: no urticaria and no problem reported Exam (Neuro) Physical Exam: The patient is right-handed. The patient is awake, alert, and attentive. Speech is normal without any aphasia or dysarthria. he can name objects, repeat phrases, and has normal spontaneous speech. Mentation and thought processes are intact, with orientation to person, place and time, and normal fund of knowledge. Attention and concentration are normal. Mood and affect are normal and appropriate. General appearance and grooming are normal. Short and long-term memory are intact. The discs are sharp with positive venous pulsations bilaterally. There are no exudates, hemorrhages, or blood vessel changes seen. Pupils are 4 mm bilaterally and reactive to light. Extraocular eye muscles are intact without nystagmus. Whe n testing visual red he does have some vision laterally, superiorly, and inferiorly to the right. The visual loss seems spotty. It is best brought out when he tries to read. He needs to move his head to see words as they run to the right. There are no deficits to sensation in the face in all 3 distributions of the fifth cranial nerve bilaterally. Corneal reflexes are positive bilaterally. Facial strength and symmetry was normal bilaterally. Hearing seems normal to whisper and finger rub bilaterally. Palate moves well without asymmetry. There is normal sternocleidomastoid and trapezius (shoulder shrug) strength bilaterally. Tongue is midline with good strength bilaterally. Neck has a full range of motion without discomfort. There are no cervical bruits bilaterally. There are no cranial or ocular bruits. Heart is without murmur. There is a regular rhythm and rate. Cervical, thoracic, and lumbar spine are nontender to palpation. Gait is narrow based, with good arm swing, turns, and stance. Balance is normal eyes open or closed. With outstretched arms there is no drift. There are no resting, postural, or action tremors. There is no ataxia with finger to nose testing. There is good facility in the hands. No other abnormal involuntary movements are noted. Motor strength is 5/5 diffusely in the arms bilaterally including deltoids, biceps, triceps, brachioradialis, wrist flexors and extensors, supervisor vat house, and intrinsic hand muscles. Motor strength is 5/5 diffusely in the legs bilaterally including hip flexors, quadriceps, hamstrings, gastrocnemius, tibialis anterior, tibialis posterior, and Peroneii muscles. Toe extensors are normal and there is good bulk in the extensor digitorum brevis muscles bilaterally. The limbs have good tone without rigidity or spasticity. There is no atrophy noted in the muscles. Muscle bulk is normal, there is no tenderness to palpation, no myotonia to percussion, and no fasciculations seen. Sensory examination is intact to touch and pin throughout all 4 limbs diffusely. Reflexes are 1/4 in the biceps, triceps, brachioradialis, and quadriceps tendons bilaterally. Achilles tendon reflexes are absent bilaterally. There is no cl onus bilaterally. Toes are downgoing with plantar stimulation bilaterally. Peripheral pulses are present and of normal quality distally in all 4 limbs. There is no peripheral edema noted in the limbs. Results & Data ([facility]) Vital Signs (Past 12 Hours) Vital Signs Temp Pulse Resp BP Pulse Ox 03/05/20 03:44 36.6 C 61 18 134/72 96 03/04/20 23:05 36.8 C 71 18 142/74 H 97 Diagnostic Findings Note that the 12 mm T2/FLAIR hyperintense focus of the periventricular left frontal lobe may reflect a remote lacunar infarct however the circumscribed margins are somewhat atypical. As a precautionary measure, a 3 month follow-up MRI of the brain may be considered to further characterize. Electronically signed by: Alexis Santizo M.D. 03/05/2020 9:24 AM ADDENDUM END MR brain wo con HISTORY: 70 years-old Male evaluate for stroke acute strokelike symptoms with right-sided numbness COMPARISON: Head CT and CTA head neck of same day, brain MRI 10/12/2013 TECHNIQUE: Multiplanar multisequence MRI of the brain was obtained without the use of IV contrast. FINDINGS: Gun Welder localizer images demonstrate no gross extracranial abnormality. There is a 2.3 x 1.9 cm focus of restricted diffusion involving the inferior left occipital lobe, image 7 of series 4 with decreased signal on ADC map compatible with area of acute infarction. This demonstrates moderate focal cytotoxic edema. Midline structures including the corpus callosum, brainstem, optic chiasm, and pituitary gland appear unremarkable the sagittal T1 series. 8 mm pineal gland cyst. No cerebellar tonsillar herniation. Degenerative changes are noted involving the imaged cervical spine. There is no acute intracranial hemorrhage, midline shift, abnormal extra axial collection, hydrocephalus or intracranial mass. Mild scattered T2/FLAIR hyperintensities throughout the white matter of the bilateral cerebral hemispheres, most pronounced in the frontal lobes is suggestive of probable chronic microvascular ischemic disease. There is a 1.2 cm focal T2/FLAIR hyperintense focus involving the periventricular white matter of the left frontal lobe on image 12 series 7 and image 17 series 5 suggestive of a probable remote lacunar infarct. Major vascular flow voids appear patent. Mastoid air cells are clear. Moderate to extensive mucosal thickening of the paranasal sinuses, most pronounced in the ethmoid air cells and right frontal lobe are noted with scattered areas of air-fluid levels compatible with acute sinusitis. Orbits are unremarkable. The skull and soft tissues are within normal limits. IMPRESSION: 1. Acute infarct of the left occipital lobe, 2.3 x 1.9 cm. 2. Mild scattered T2/FLAIR hyperintensities throughout the white matter are suggestive of probable chronic microvascular ischemic disease. Additionally, there is a suggested remote lacunar infarct of the periventricular left frontal lobe. 3. Paranasal sinus disease as above with findings suggestive of acute sinusitis. ACT 112: Negative or not required by law. The above report was generated using voice recognition software. It may contain grammatical, syntax or spelling errors. Electronically signed by: Alexis Santizo M.D. 03/05/2020 7:29 AM PG Care Time/CCT Total # of Minutes Spent Total Time Spent with Patient: Total time spent is greater than 50% in coordination of care (as documented) at patient's floor/unit and/or counseling patient: Coding Level of Care Code 52451 Initial Inpt Care Lvl 3 Diagnoses Acute CVA (cerebrovascular accident) I63.9 Right homonymous hemianopsia due to recent cerebral infarction I69.398; H53.461 Numbness on right side R20.0 Hypertension I10 Hypertension type: unspecified Dyslipidemia E78.5 Time Spent (min) 100 Comment Add 92110 to the 29012 (1) Hypertension Hypertension type: unspecified Qualified Code(s): I10 - Essential (primary) hypertension
--- NOTE | 2020-03-05 11:59 | XCELERA ---
[id number]
[2020-03-05] MEDS ORDERED: STROKE PATIENT DISCHARGE STA (14:46)
--- NOTE | 2020-03-05 15:21 | Pharmacy Report ---
Pharmacist Stroke Counseling - Date of Service March 05, 2020 - Scope: Pharmacy has been consulted to provide medication discharge counseling for this patient admitted with ischemic stroke as per the Pharmacist Discharge Counseling for Stroke Patients Protocol. - Medications on Discharge: Home Medications Medication Instructions Recorded Confirmed aspirin 81 mg chewable tablet 81 mg PO QAM tab 11/14/19 03/04/20 cholecalciferol (vitamin D3) 50 2,000 units PO QAM cap 11/14/19 03/04/20 mcg (2,000 unit) capsule mometasone 50 mcg/actuation nasal 1 sprays INTNAS QAM PRN gm 11/14/19 03/04/20 spray omega-3 fatty acids 1,000 mg 1,000 mg PO QAM 11/14/19 03/04/20 capsule lisinopril 20 mg PO QAM 03/04/20 03/04/20 simvastatin 40 mg PO QAM 03/04/20 03/04/20 New Rx's Medication Instructions Recorded sildenafil (pulm.hypertension) 20 20 mg PO ONCE PRN #120 tab 02/06/20 mg tablet atorvastatin 40 mg PO QAM #30 tab 03/05/20 clopidogrel [Plavix] 75 mg PO DAILY #30 tab 03/05/20 metformin 500 mg PO BID #60 tab 03/05/20 - Action: The above medications, specifically ones for stroke treatment/prophylaxis, have been reviewed in detail with the patient prior to discharge. This includes indication, common adverse reactions, drug interactions, and medication administration. Medication counseling has been employed using the teach-back method to ensure understanding. - Outcome: The patient demonstrated understanding of the medications. Additional comments: - Counseling was performed via telephone due to the COVID-19 pandemic - Patient demonstrated understanding of all new medications - Patient was given ample to time to have any/all questions answered completely - Patient was given a callback number should he have any questions in the future Thank you for allowing pharmacy to be involved in the care of this patient. Please call [phone] with any additional questions
--- NOTE | 2020-03-05 16:23 | Discharge Summary ---
Date of Service March 05, 2020 Admission HPI Per Admitting Provider 70-year-old male who presents to the ED with complaints of right-sided numbness for the last hour. Patient states that he felt unusual this morning before work and then he developed some facial numbness and then had complete right-sided numbness. His most concerning issue now that all the numbness is resolved as he is got a right sided upper visual field cut in both eyes. The patient states that yesterday, he had a dizzy spell for a few minutes that resolved. This is also associated with some left arm discomfort but no chest pain pressure shortness of breath or feelings of palpitations. Today, 03/04/2020 approximately 5 hours prior to presenting, his symptoms began on his way to work. They got worse and he called his primary care office which referred to the hospital. He drove himself home. He did not look in the mirror to see if he had any facial drooping. When he got to the emergency department his side was so numb that he felt he could not walk into the emergency department. He subsequently was brought in in a wheelchair he had full resolution of his numbness at this point he is only presenting symptom currently is his visual field cut patient denies any difficulty with his speech or facial drooping during the severe numbness episode. Patient has not had cough, cold or congestion. He has been in baseline health. He has not had any recent tick bites change in his medical regiment. Over the weekend he was at a wedding did have increased alcohol intake over his baseline which only was few drinks at a wedding. He did use his Viagra over last 24 hours. He takes baby aspirin regularly. He has never had a stroke. Principal Diagnosis occipital stroke diabetes obesity Discharge Exam The patient appeared well Vital signs as documented. Lungs are clear to auscultation and appear unlabored Cardiac exam, Rhythm is regular.. No murmurs, rubs or gallops. Abdominal exam reveals normal bowel sounds, soft non tender, no masses Extremities are nonedematous and both pedal pulses are normal. Neurologic exam is alert and oriented, no focal loss of strength or sensation Skin is without bruises or rashes Psychologically is without concerns for anxiety or depression Discharge Data Allergies Allergy/AdvReac Type Severity Reaction Status Date / Time codeine Allergy Mild Verified 03/04/20 15:24 Consultations 03/04/20 15:06 ED Decision to Admit Stat 03/04/20 18:38 Consult Case Management - Discharge Planning Routine 03/04/20 22:40 Consult Neurology Routine 03/05/20 08:20 Consult Neurology Routine Ordered Studies 03/04/20 14:08 CT angio head w con Stat CT angio neck with con Stat CT head/brain wo con Stat 03/04/20 18:38 MR brain wo con Urgent Hospital Course (1) Acute CVA (cerebrovascular accident): MRI of brain 03/05/20 IMPRESSION: 1. Acute infarct of the left occipital lobe, 2.3 x 1.9 cm. 2. Mild scattered T2/FLAIR hyperintensities throughout the white matter are suggestive of probable chronic microvascular ischemic disease. Additionally, there is a suggested remote lacunar infarct of the periventricular left frontal lobe. 3. Paranasal sinus disease as above with findings suggestive of acute sinusitis. 03/05 patient has a negative Lyme, hemoglobin A1c is elevated to 7.5, with diabetic education and initiation of medication lipid panel is so so but converted to lipitor CT head 03/04/2020 no acute intracranial findings para sinus opacification CT angiogram head and neck 03/04/2020 No evidence of aneurysm major intracranial branch occlusion or major intracranial stenosis. 50% stenosis of the proximal right internal carotid artery is the only abnormality seen on CTA of the neck We had an extensive discussion regarding stroke and diabetes risk, I did give information but fear that he is not motivated to make changes in his life (2) Right homonymous hemianopsia due to recent cerebral infarction: recommend follow up with eye exam before resumption of work or driving (3) Hypertension: Patient traditionally takes lisinopril 20 this will be maintained (4) BPH (benign prostatic hyperplasia): Patient is frequent urination does not usually take medications for this did not want to start any medications at this time states he follows with his doctor for this problem Total Time Total Time Spent Total Time Spent (In Minutes): It required greater than 30 minutes to prepare this patient for discharge Discharge Plan Discharge Items Patient Disposition: Home - Self-Care Reason For Visit: TRANSIDENT NEUROLOGIC SYMPTOMS Discharge Diagnosis: occipital stroke diabetes Condition on Discharge: Good Activity: Resume your previous activity Activity Comment: no driving until you are seen by an eye doctor Non-emergency contact: Primary Care Provider and Ehs Engineer Call non-emergency contact if: you have any medication questions and your symptoms worsen Follow-up/Referrals: Horacio,David, MD [Physician] - (DR. ROSARIO'S OFFICE WILL CALL PATIENT WITH AN APPT DATE AND TIME.) Alton Hu, [Primary Care Provider] - 03/11/20 4:00 pm (APPT. SCHEDULE WITH DR. HU, OFFICE ASKED THAT PATIENT CALLS WHEN ARRIVES AT FACILITY. SOMEONE WILL THEN COME OUT TO PATIENT'S VEHICLE TO GET PATIENT FOR HIS APPT. ) Diet: Carb Consistent or DM2 Addtl Attending Provider Instructions: Amauri you have a choice to help your health and try to avoid furhter serious krystal problems by changing your diet and activity level. Without change and effort you will have further issues with possible strokes and heart problems. Now is the time to act to improve your health and safeguard your future. Please take the medication prescribed to you Look at the [place] diabetes web site for diet choices for you. Please follow up with an eye doctor , one choice is [facility], they do accept [facility] and are in [place] [phone] Pending Studies at Discharge: No Stand-Alone Forms: Medications to Prevent Stroke, My [facility] [address], Smoking Cessation Medications and DC Order Prescriptions: New atorvastatin 40 mg Tablet 40 mg PO QAM Qty: 30 RF: 3 metformin 500 mg tablet 500 mg PO BID Qty: 60 RF: 5 clopidogrel [Plavix] 75 mg tablet 75 mg PO DAILY Qty: 30 RF: 5 Continued sildenafil (pulm.hypertension) 20 mg tablet 20 mg PO ONCE PRN (Reason: sexual activity) Qty: 120 RF: 2 omega-3 fatty acids [Fish Oil Concentrate] 1,000 mg capsule 1,000 mg PO QAM RF: 0 mometasone 50 mcg/actuation spray,non-aerosol 1 sprays INTNAS QAM PRN (Reason: .) RF: 0 cholecalciferol (vitamin D3) 50 mcg (2,000 unit) capsule 2,000 units PO QAM RF: 0 lisinopril 20 mg tablet 20 mg PO QAM RF: 0 Discontinued aspirin 81 mg tablet,chewable 81 mg PO QAM RF: 0 simvastatin 40 mg tablet 40 mg PO QAM RF: 0 Discharge Orders: Discharge Order (Routine); Ordered 03/05/20 Ordered By: Carlos Vidales/Other Patient Handouts: Healthy Meals for Diabetes, Stroke Prevention Eating Healthy, Stroke Prevention Activity, A1C Admission Data Admit Date/Time: 03/05/20 08:46 Attending Provider: Carlos Nolen Admit Provider: Carlos Nolen Primary Care Provider: Alton Hu Other Providers: Jamie Walter Emile Other Interventions: Discharge Summary Assessment (RN) Last Done: 03/05/20 15:16 Coding Level of Care Code D/C Day Management >30 mins Diagnoses Acute CVA (cerebrovascular accident) I63.9 Right homonymous hemianopsia due to recent cerebral infarction I69.398; H53.461 Hypertension I10 BPH (benign prostatic hyperplasia) N40.0
[2020-03-06] MEDS ORDERED: ATORVASTATIN 40 MG TAB PO SCH (09:00)
== END 2020-03-05 16:34 | disposition home or self-care (01) | DRG 66 ==
LOC: 2S 13:40 → ED 13:40 → 2S 18:00